=== PATIENT | female | born 1955 | race Caucasian/White ===

== ENCOUNTER → 2016-12-05 | Outpatient (CLI) | payer OTHER | LOC: CIMAGING 12:52 | PROVIDERS: ATTEND Family Medicine | DX: M77.32 Calcaneal spur, left foot (principal); M79.89 Other specified soft tissue disorders | CPT/HCPCS: 73630-PO ==

== ENCOUNTER 2017-06-22 18:15 | Emergency (ER) | payer OTHER ==
[2017-06-22 18:30] VITALS: BP 168/79; PULSE 90; RESP 16; TEMP 99.7; O2SAT 96
--- NOTE | 2017-06-22 18:56 | EDPHY ---
H & P Stated Complaint: right side neck shoulder pain, no injury Time Seen by Provider: 06/22/17 18:30 HPI/ROS: Chief Complaint: Right-sided lateral neck pain HPI: A 62-year-old woman woke this morning with pain in her left lateral neck down into her shoulder. Does not have a history of the same. No known injuries. No headaches. No numbness or weakness. No nausea or vomiting. Pain is about an 8/10. She did take 1 Aleve this morning with no relief. ROS: 10 point Review of Systems is negative except as noted in the HPI. PMH: High cholesterol Social History: No smoking, occasional alcohol, no recreational drug use Family History: non-contributory Physical Exam: Gen: Awake, Alert, No Distress HEENT: Nose: no rhinorrhea Eyes: PERRLA, EOMI Mouth: Moist mucosa Neck: No midline tenderness or step-offs, she has got palpable spasm and tenderness in the lateral right trapezius extending from the lateral occiput down above her left shoulder blade. Palpating this reproduces the presenting complaint. She has no meningismus. No bruits. No lymphadenopathy or neck swelling. Back: no CVA tenderness, no midline tenderness Ext: no edema, non-tender Skin: no rash Neuro: CN II-XII intact, Sensation grossly intact, Strength 5/5 in bilateral upper and lower extremities - Medical/Surgical History Hx Asthma: No Hx Chronic Respiratory Disease: No Hx Diabetes: No Hx Cardiac Disease: No Hx Renal Disease: No Hx Cirrhosis: No Hx Alcoholism: No Hx HIV/AIDS: No Hx Splenectomy or Spleen Trauma: No Other PMH: polymyalgia rheumatica (PMR) after knee surgery (relieved with prolonged course of prednisone). high cholesterol,dvt left leg,. thyroid, - Social History Smoking Status: Former smoker Constitutional: Initial Vital Signs Temperature (C) 37.6 C 06/22/17 18:26 Heart Rate 90 06/22/17 18:26 Respiratory Rate 16 06/22/17 18:26 Blood Pressure 168/79 H 06/22/17 18:26 O2 Sat (%) 96 06/22/17 18:26 O2 Delivery Mode Room Air Allergies/Adverse Reactions: povidone-iodine [From Betadine] Allergy (Verified 06/22/17 18:32) soap [From Betadine] Allergy (Verified 06/22/17 18:32) Home Medications: Medication Instructions Recorded LORAZEPAM 01/10/14 Crestor 04/14/14 Nature Thyroid 04/14/14 Simply Sleep Qhs 04/14/14 Diazepam 5 mg PO TID PRN #9 tab 06/22/17 Medical Decision Making ED Course/Re-evaluation: Patient presenting with atraumatic neck pain consistent with spasmodic torticollis. She has no neurologic findings or complaints. No midline tenderness or pain. No headache or other symptoms suggestive of a central nervous system or vascular process. Will discharge her on appropriate doses of nonsteroidals, ice, will also give her a few diazepam as a muscle relaxer. She will follow up with primary care physician on Saturday. Departure - Departure Disposition: Home, Routine, Self-Care Clinical Impression: Spasmodic torticollis Condition: Good Instructions: Spasmodic Torticollis (ED), Diazepam (By mouth) Additional Instructions: You may take ibuprofen, 600 mg 3 times a day as an anti-inflammatory. You may also take acetaminophen 1000 mg every 4 hours in addition to the ibuprofen. If you're still having pain take diazepam, 5 mg every 8 hours for muscle spasm. Apply ice for 15 minutes the 4 to 6 times a day. Follow up with primary care physician on Saturday. Return to the emergency depart for increasing pain, headache, nausea, vomiting, fevers, chills, or any other concerns. Referrals: Gerri Hernandez [Primary Care Provider] - As per Instructions Prescriptions: Diazepam 5 mg PO TID PRN #9 tab PRN Reason: Spasms
[2017-06-22] MEDS ORDERED: DIAZEPAM 5 MG PREPACK#4 BTL TAKEHOME ONE (18:57)
== END 2017-06-22 19:08 | disposition home or self-care (01) ==
LOC: CED 18:15
DX: G24.3 Spasmodic torticollis (principal); Z87.891 Personal history of nicotine dependence

== ENCOUNTER → 2017-09-13 | Outpatient (CLI) | payer OTHER | LOC: CIMAGING 12:14 | PROVIDERS: ATTEND Family Medicine | DX: Z12.31 Encounter for screening mammogram for malignant neoplasm of breast (principal) | CPT/HCPCS: G0202 ==

== ENCOUNTER → 2018-09-15 | Outpatient (CLI) | payer OTHER | LOC: CIMAGING 09:43 | PROVIDERS: ATTEND Family Medicine | DX: Z12.31 Encounter for screening mammogram for malignant neoplasm of breast (principal) ==

== ENCOUNTER → 2018-09-29 | Outpatient (CLI) | payer OTHER | LOC: CIMAGING 12:34 | PROVIDERS: ATTEND Family Medicine | DX: R92.8 Other abnormal and inconclusive findings on diagnostic imaging of breast (principal) | CPT/HCPCS: 76641-PO ==

== ENCOUNTER → 2019-03-20 | Outpatient (CLI) | payer OTHER | LOC: FIMAGING 10:05 ==